=== PATIENT | male | born 1980 | race Caucasian/White ===

== ENCOUNTER 2022-02-01 17:05 | Emergency (ER) | payer OTHER ==
[2022-02-01 17:10] VITALS: BP 135/88; PULSE 94; TEMP 98.8; BMI 38.2
[2022-02-01] MEDS ORDERED: KETOROLAC TROMETHAMINE 30 MG/1 ML VIAL IM ONE (18:09)
[2022-02-01] MEDS ORDERED: KETOROLAC TROMETHAMINE 30 MG/1 ML VIAL ONE (18:14)
== END 2022-02-01 18:54 | disposition home or self-care (01) ==
LOC: JERFT 17:05
PROC: 3E023GC Introduction of Other Therapeutic Substance into Muscle, Percutaneous Approach (ICD-10-PCS; principal; 2022-02-01)
DX: S16.1XXA Strain of muscle, fascia and tendon at neck level, initial encounter (principal); M70.22 Olecranon bursitis, left elbow; M25.511 Pain in right shoulder; M25.551 Pain in right hip; W19.XXXA Unspecified fall, initial encounter
CPT/HCPCS: 72040-TC; 72170-TC-FY; 73030-TC-RT-FY; 73070-TC-LT-FY; 73502-TC-RT-FY; 99284-25